=== PATIENT | female | born 1985 | race Two or more races ===

== ENCOUNTER 2016-10-12 15:06 | Emergency (ER) | payer OTHER ==
[~2016-10-12] VITALS: Ht 157.5 cm; Wt 68.0 kg
[~2016-10-12 15:06] MED LIST: AMOXICILLIN500 MG ORAL; CIPROFLOXACIN500 MG PO; CLARITHROMYCIN500 MG PO; CYCLOBENZAPRINE10 MG ORAL; IBUPROFEN600 MG ORAL; NKM; NORCO 5-325 TA1 EACH ORAL; PHENAZOPYRIDIN100 MG ORAL; PRILOSEC20 MG ORAL
[2016-10-12 15:23] VITALS: BP 118/75
[2016-10-12 16:15] LABS: BASOPHILS % (AUTO) 1.3 % (0.0-2.0); EOSINOPHILS % (AUTO) 1.5 % (0.0-3.0); LYMPHOCYTES % (AUTO) 34.1 % (20.0-45.0); MEAN CORPUSCULAR HEMOGLOBIN 32.8 PG (27.0-31.0); MEAN CORPUSCULAR VOLUME 91 FL (80-99); MEAN PLATELET VOLUME 7.7 FL (6.5-10.1); MONOCYTES % (AUTO) 5.3 % (1.0-10.0); NEUTROPHILS % (AUTO) 57.8 % (45.0-75.0); PLATELET COUNT 203 K/UL (150-450); RED BLOOD COUNT 4.13 M/UL (4.20-5.40); RED CELL DISTRIBUTION WIDTH 12.3 % (11.6-14.8); WHITE BLOOD COUNT 8.4 K/UL (4.8-10.8)
[2016-10-12 16:19] LABS: APPEARANCE,URINE CLEAR; KETONES,URINE NEGATIVE (NEGATIVE); LEUKOCYTE ESTERASE ,URINE 1+ (NEGATIVE); NITRITE,URINE NEGATIVE (NEGATIVE); PH,URINE 6 (4.5-8.0); PROTEIN,URINE NEGATIVE (NEGATIVE); UROBILINOGEN,URINE NORMAL MG/DL (0.0-1.0)
[2016-10-12 16:25] LABS: ALANINE AMINOTRANSFERASE 21 U/L (3-33); ALBUMIN/GLOBULIN RATIO 1.5 (1.0-2.7); AMYLASE 40 U/L (10-110); ANION GAP 13 (5-15); ASPARTATE AMINO TRANSFERASE 20 U/L (5-40); CALCIUM 8.7 mg/dL (8.6-10.2); CARBON DIOXIDE 26 mEQ/L (20-30); CHLORIDE 99 mEQ/L (98-107); CREATININE 0.6 mg/dL (0.5-0.9); GLOMERULAR FILTRATION RATE > 60 mL/min (>60); HEMOLYSIS 7; LIPASE 54 U/L (< 60); POTASSIUM 3.6 mEQ/L (3.4-4.9); SODIUM 138 mEQ/L (135-145)
[2016-10-12 16:27] LABS: BACTERIA,URINE FEW /HPF; SQUAMOUS EPITHELIAL CELL,UR MODERATE /LPF (NONE/OCC)
[2016-10-12] MEDS ORDERED: Tubing IV Cassette IV ONE (16:43)
[2016-10-12] MEDS ORDERED: Dicyclomine HCl 10mg/5ml oral soln ORAL ONE (16:45)
[2016-10-12] MEDS ORDERED: Mylanta II UD 30ml ORAL ONE (16:45)
[2016-10-12] MEDS ORDERED: Famotidine 20 MG/ 2ML VIAL IVP ONE (16:45)
[2016-10-12] MEDS ORDERED: Lidocaine 2% Visc 15ml soln ORAL ONE (16:45)
[2016-10-12] MEDS ORDERED: OMEPRAZOLE20 M2 ORAL (17:26)
[2016-10-12] MEDS ORDERED: PEPCID40 MG PO (17:26)
[2016-10-12 17:45] VITALS: BP 118/75
--- NOTE | 2016-10-12 22:35 | Emergency Room Report ---
History of Present Illness General Chief Complaint: Abdominal Pain Source: Patient Present Illness HPI The patient is a 30-year-old female presenting for mid upper abdominal pain which began today. The patient states that she has had gastritis in the past and this does feel similar. Pain is described as an 8/10 dull ache to the mid- upper abdomen and does not radiate. Pain is worse with touch. She has not tried any medications. She denies any other symptoms including nausea, vomiting , fever, pain, dysuria, hematuria, vaginal discharge Allergies: Coded Allergies: No Known Allergies (Unverified , 04/23/14) Patient History Past Medical History: see triage record Pertinent Family History: none Last Menstrual Period: 09/09/16 Now: No Reviewed Nursing Documentation: PMH: Agreed, PSxH: Agreed Nursing Documentation-PMH Past Medical History: No Stated History Review of Systems All Other Systems: negative except mentioned in HPI Physical Exam Vital Signs Date Time Temp Pulse Resp B/P Pulse Ox O2 Delivery O2 Flow Rate FiO2 10/12/16 15:23 98.1 87 15 118/75 98 Room Air Sp02 EP Interpretation: reviewed, normal General Appearance: no apparent distress, alert, GCS 15, non-toxic Head: normocephalic, atraumatic Eyes: bilateral eye PERRL, bilateral eye normal inspection ENT: hearing grossly normal, normal pharynx, no angioedema, normal voice Respiratory: chest non-tender, lungs clear, normal breath sounds, speaking full sentences Cardiovascular #1: regular rate, rhythm, no edema Gastrointestinal: normal bowel sounds, soft, non-distended, no guarding, no rebound, tenderness - epigastric Genitourinary: normal inspection, no CVA tenderness Musculoskeletal: back normal, gait/station normal, normal range of motion, non- tender Neurologic: alert, oriented x3, responsive, motor strength/tone normal, sensory intact, speech normal Psychiatric: judgement/insight normal, memory normal, mood/affect normal, no suicidal/homicidal ideation Skin: normal color, no rash, warm/dry, well hydrated Lymphatic: no adenopathy Medical Decision Making PA Attestation Dr. Johnson is my supervising physician. Patient management was discussed with my supervising physician Diagnostic Impression: Primary Impression: Gastritis Qualified Codes: K29.70 - Gastritis, unspecified, without bleeding ER Course The patient is a 30-year-old female presenting for mid upper abdominal pain which began today Differential diagnoses considered but not limited to: Gastroenteritis, gastritis , GERD, pancreatitis, appendicitis PE: Vitals WNL. NAD. Abdomen: Normal appearance. Non distended. No ecchymosis. Normal BS. + TTP epigastric region. No McBurney point tenderness. No guarding. No CVA tenderness All labs are unremarkable The patient is given IV Pepcid and a GI cocktail and states pain has decreased significantly The patient will be discharged home with a prescription for Pepcid and omeprazole. Patient is to followup with PMD. ER precautions are given Laboratory Tests Test 10/12/16 15:52 White Blood Count 8.4 K/UL (4.8-10.8) Red Blood Count 4.13 M/UL (4.20-5.40) L Hemoglobin 13.6 G/DL (12.0-16.0) Hematocrit 37.6 % (37.0-47.0) Mean Corpuscular Volume 91 FL (80-99) Mean Corpuscular Hemoglobin 32.8 PG (27.0-31.0) H Mean Corpuscular Hemoglobin Concent 36.0 G/DL (32.0-36.0) Red Cell Distribution Width 12.3 % (11.6-14.8) Platelet Count 203 K/UL (150-450) Mean Platelet Volume 7.7 FL (6.5-10.1) Neutrophils (%) (Auto) 57.8 % (45.0-75.0) Lymphocytes (%) (Auto) 34.1 % (20.0-45.0) Monocytes (%) (Auto) 5.3 % (1.0-10.0) Eosinophils (%) (Auto) 1.5 % (0.0-3.0) Basophils (%) (Auto) 1.3 % (0.0-2.0) Urine Color Yellow Urine Appearance Clear Urine pH 6 (4.5-8.0) Urine Specific [place] 1.025 (1.005-1.035) Urine Protein Negative (NEGATIVE) Urine Glucose (UA) Negative (NEGATIVE) Urine Ketones Negative (NEGATIVE) Urine Occult Blood Negative (NEGATIVE) Urine Nitrite Negative (NEGATIVE) Urine Bilirubin Negative (NEGATIVE) Urine Urobilinogen Normal MG/DL (0.0-1.0) Urine Leukocyte Esterase 1+ (NEGATIVE) H Urine RBC 2-4 /HPF (0 - 2) H Urine WBC 2-4 /HPF (0 - 2) Urine Squamous Epithelial Cells Moderate /LPF (NONE/OCC) H Urine Bacteria Few /HPF (NONE) Urine HCG, Qualitative Negative Sodium Level 138 mEQ/L (135-145) Potassium Level 3.6 mEQ/L (3.4-4.9) Chloride Level 99 mEQ/L (98-107) Carbon Dioxide Level 26 mEQ/L (20-30) Anion Gap 13 (5-15) Blood Urea Nitrogen 10 mg/dL (7-23) Creatinine 0.6 mg/dL (0.5-0.9) Estimate Glomerular Filtration Rate > 60 mL/min (>60) Glucose Level 113 mg/dL (74-106) H Calcium Level 8.7 mg/dL (8.6-10.2) Total Bilirubin 0.2 mg/dL (0.0-1.2) Aspartate Amino Transferase (AST) 20 U/L (5-40) Alanine Aminotransferase (ALT) 21 U/L (3-33) Alkaline Phosphatase 74 U/L (35-104) Total Protein 7.0 g/dL (6.6-8.7) Albumin 4.3 g/dL (3.5-5.2) Globulin 2.7 g/dL Albumin/Globulin Ratio 1.5 (1.0-2.7) Amylase Level 40 U/L (10-110) Lipase 54 U/L (< 60) Lab Results Impression All unremarkable Last Vital Signs Date Time Temp Pulse Resp B/P Pulse Ox O2 Delivery O2 Flow Rate FiO2 10/12/16 17:45 98.1 87 15 118/75 98 Room Air Status: improved Disposition: HOME, SELF-CARE Condition: Improved Scripts Omeprazole (OMEPRAZOLE) 20 Mg Capsule. 20 MG ORAL DAILY, #30 CAP Prov: TERZIAN,MORENA P.A. 10/12/16 Famotidine (PEPCID) 40 Mg Tablet 40 MG PO DAILY, #7 TAB 0 Refills Prov: TERZIAN,MORENA P.A. 10/12/16 Patient Instructions: Gastritis, Adult, Abdominal Pain, Adult, Food Choices for Gastroesophageal Reflux Disease, Adult, [id number] Additional Instructions: I discussed my findings with the patient. All questions and concerns have been answered. Treatment and medication compliance have been addressed. I advised the patient that they need to follow up with PMD in 3-5 days. Return to ED if symptoms worsen, new symptoms arise, or if needed for any reason. Patient verbalized understanding of discharge instructions. MORENA DIMAS Oct 12, 2016 22:35
== END 2016-10-12 17:45 | disposition home or self-care (01) ==
LOC: EMR 15:59
DX: K29.70 Gastritis, unspecified, without bleeding (principal)
CPT/HCPCS: 36415; 80053; 81003; 81025; 82150; 83690; 85025; 96360; 96374; 99284; S0028

== ENCOUNTER 2019-08-04 08:56 | Emergency (ER) | payer OTHER ==
[~2019-08-04] VITALS: Ht 157.5 cm; Wt 72.6 kg
[~2019-08-04 08:56] MED LIST changes: +OMEPRAZOLE20 M2 ORAL; +PEPCID40 MG PO
[2019-08-04] MEDS ORDERED: CLINDAMYCIN HC300 MG ORAL (09:43)
[2019-08-04] MEDS ORDERED: ACETAMINOPHEN-1 EAC1 ORAL (09:43)
[2019-08-04] MEDS ORDERED: Clindamycin 150mg cap ORAL ONE (09:45)
--- NOTE | 2019-08-04 09:55 | NUR ---
ED Nurse Note:pt relates left earache x 1 month and now with cheek edema. pt denies toothache. pt states no painful swallowing
[2019-08-04 09:57] VITALS: BP 149/84
--- NOTE | 2019-08-04 10:15 | NUR ---
ED Nurse Note: Pt cleared by health care Provider for discharge. DC instructions/prescription was given and explained to pt and verbalized understanding of teachings. All medical devices such as ID band removed. Pt is AAO x4, ambulatory and left with all personal belongings.
[2019-08-04 10:16] VITALS: BP 149/84
--- NOTE | 2019-08-04 14:50 | Emergency Room Report ---
History of Present Illness General Chief Complaint: Earache Source: Patient Present Illness HPI Patient presents with complaints of left ear pain Patient reports that she has had this discomfort over the past several weeks had oral antibiotics which included Keflex by her primary physician as the discomfort persisted she presents to the ER denies any visual changes denies any change in hearing denies any fevers or chills On evaluation patient appears to have some fullness involving the left maxillary region and after asking she does report that she does feel there is some increased fullness in that area Denies any trismus however she does feel some increased swelling to the lateral part of the lower jawline and left neck region Denies any recent travel or trauma patient reports that she has seen her dentist however did not have any imaging or other evaluation performed Allergies: Coded Allergies: No Known Allergies (Unverified , 04/23/14) Patient History Past Medical History: see triage record Last Menstrual Period: 07/27/2019 Reviewed Nursing Documentation: PMH: Agreed; PSxH: Agreed Nursing Documentation-PMH Past Medical History: No Stated History Review of Systems All Other Systems: negative except mentioned in HPI Physical Exam Vital Signs Date Time Temp Pulse Resp B/P (MAP) Pulse Ox O2 Delivery O2 Flow Rate FiO2 08/04/19 09:04 98.2 84 16 149/84 (105) 96 Room Air Sp02 EP Interpretation: reviewed, normal General Appearance: well appearing, no apparent distress Head: normocephalic, atraumatic Eyes: bilateral eye PERRL, bilateral eye EOMI ENT: other - Bilateral ears appear clear, patient does have dental decay in the left upper molar region, also appears to have changes in the lower molar region, patient appears to have some mild swelling to the left maxillary area, small palpable lymph nodes are felt left anterior cervical region no obvious large masses noted Neck: supple, other - As above, no obvious supraclavicular nodules Respiratory: lungs clear Cardiovascular #1: regular rate, rhythm, no edema Gastrointestinal: non tender, soft Musculoskeletal: normal inspection - No trismus is appreciated Neurologic: alert, oriented x3 Skin: no rash Lymphatic: normal inspection Medical Decision Making Diagnostic Impression: Primary Impression: parotiditis Additional Impression: dental abscess ER Course Patient's evaluation has multiple differentials and consideration The fullness in the left maxillary area and the patient general discomfort can be source of dental abscess/infection The discomfort on the left neck can also be associated with the lymphadenopathy Other differential such as lymphoma other cancer type process, entertained as well patient requires initial antibiotic coverage with appropriate antibiotics Further dental evaluation and imaging Further outpatient follow-up with possible imaging may be required if these findings are not providing any input or information Last Vital Signs Date Time Temp Pulse Resp B/P (MAP) Pulse Ox O2 Delivery O2 Flow Rate FiO2 08/04/19 10:16 98.2 74 16 149/84 96 Room Air Status: improved Disposition: HOME, SELF-CARE Condition: Stable Scripts Acetaminophen With Codeine (T#3) (TYLENOL #3 TAB*) Y Tab 1 TAB ORAL Q12HR PRN for For Pain, #10 TAB Prov: Chad Mitchell DO 08/04/19 Clindamycin Hcl (CLINDAMYCIN HCL) 300 Mg Capsule 300 MG ORAL THREE TIMES A DAY, #30 CAP Prov: Chad Mitchell DO 08/04/19 Referrals: NOT CHOSEN IPA/MD,REFERRING (PCP) [facility] Angelo Treadwell [facility]. [facility] Patient Instructions: Dental Abscess, [id number], Parotitis, [id number] Additional Instructions: Please follow-up with your primary physician for close outpatient follow-up. You will require dental specialty follow-up. With possible ENT follow-up Chad Mitchell DO Aug 04, 2019 14:50
== END 2019-08-04 10:15 | disposition home or self-care (01) ==
LOC: EMR 09:45
DX: K11.20 Sialoadenitis, unspecified (principal); K04.7 Periapical abscess without sinus
CPT/HCPCS: 99282